=== PATIENT | female | born 1980 | race Asian ===

== ENCOUNTER 2016-11-21 20:32 | Emergency (ER) | payer OTHER ==
[~2016-11-21] VITALS: Ht 152.4 cm; Wt 78.5 kg
[2016-11-21 20:45] VITALS: TEMP 98.8
[2016-11-21] MEDS ORDERED: NAPROSYN250 MG OR (22:22)
[2016-11-21 22:28] VITALS: BP 110/75
== END 2016-11-21 22:28 | disposition home or self-care (01) ==
LOC: ED 20:32
DX: R07.89 Other chest pain (principal)
CPT/HCPCS: 93005; 99283

== ENCOUNTER 2017-10-16 01:00 | Outpatient (CLI) | payer OTHER ==
[~2017-10-16 01:00] MED LIST: NAPROSYN250 MG OR
== END 2017-10-16 01:05 | disposition short-term general hospital (02) ==
LOC: AMB 01:00
DX: R07.89 Other chest pain (principal)
CPT/HCPCS: A0425; A0427

== ENCOUNTER 2017-10-16 01:08 | Emergency (ER) | payer OTHER ==
[~2017-10-16] VITALS: Ht 165.1 cm; Wt 86.2 kg
[2017-10-16 01:29] LABS: PLATELET COUNT 212 K/uL (152-353)
[2017-10-16 01:42] LABS: POTASSIUM 3.4 mmol/L (3.6-5.2); SODIUM 135 mmol/L (136-145)
[2017-10-16 03:00] VITALS: BP 123/68; TEMP 98.3
== END 2017-10-16 03:04 | disposition home or self-care (01) ==
LOC: ED 01:08
DX: R07.89 Other chest pain (principal); N30.80 Other cystitis without hematuria; R31.9 Hematuria, unspecified
CPT/HCPCS: 80053; 80307; 81000; 82550; 84484; 85027; 85044; 85610; 85730; 93005; 96374; 96375; 99284; J2270; J2405

== ENCOUNTER 2017-11-15 15:39 | Emergency (ER) | payer OTHER ==
[~2017-11-15] VITALS: Ht 152.4 cm; Wt 77.1 kg
[2017-11-15 16:02] VITALS: BP 125/84; TEMP 98.6
== END 2017-11-15 16:15 | disposition home or self-care (01) ==
LOC: ED 15:39
DX: R50.9 Fever, unspecified (principal); R05 Cough; J02.9 Acute pharyngitis, unspecified
CPT/HCPCS: 99282

== ENCOUNTER 2018-05-11 23:46 | Emergency (ER) | payer OTHER ==
[~2018-05-11] VITALS: Ht 152.4 cm; Wt 79.8 kg
[2018-05-12 01:54] VITALS: BP 128/78; TEMP 98
== END 2018-05-12 01:57 | disposition home or self-care (01) ==
LOC: ED 23:46
DX: R10.84 Generalized abdominal pain (principal); K21.9 Gastro-esophageal reflux disease without esophagitis
CPT/HCPCS: 81000; 96372; 99282; J1885

== ENCOUNTER 2019-02-11 10:33 | Emergency (ER) | payer OTHER ==
[~2019-02-11] VITALS: Ht 152.4 cm; Wt 78.5 kg
[2019-02-11 11:25] LABS: PLATELET COUNT 216 K/uL (152-353)
[2019-02-11 11:31] LABS: POTASSIUM 3.9 mmol/L (3.6-5.2); SODIUM 137 mmol/L (136-145)
[2019-02-11 13:40] VITALS: BP 105/66; TEMP 97.9
== END 2019-02-11 13:40 | disposition home or self-care (01) ==
LOC: ED 10:33
PROVIDERS: Family Medicine
DX: R07.89 Other chest pain (principal); Z63.4 Disappearance and death of family member
CPT/HCPCS: 36415; 80053; 81000; 81025; 82550; 84484; 85027; 85379; 93005; 99284

== ENCOUNTER 2019-03-12 16:41 | Emergency (ER) | payer OTHER ==
[~2019-03-12] VITALS: Ht 152.4 cm; Wt 83.0 kg
[2019-03-12 17:25] LABS: POTASSIUM 3.7 mmol/L (3.6-5.2); SODIUM 138 mmol/L (136-145)
[2019-03-12 18:03] LABS: PLATELET COUNT 239 K/uL (152-353)
[2019-03-12 18:15] VITALS: BP 109/72; TEMP 97.8
== END 2019-03-12 18:15 | disposition home or self-care (01) ==
LOC: ED 16:41
PROVIDERS: Emergency Medicine
DX: R07.89 Other chest pain (principal); I45.81 Long QT syndrome
CPT/HCPCS: 36415; 80053; 82550; 82553; 84484; 85027; 93005; 99284

== ENCOUNTER 2019-10-21 18:43 | Emergency (ER) | payer OTHER ==
[~2019-10-21] VITALS: Ht 152.4 cm; Wt 79.4 kg
[2019-10-21 19:34] LABS: POTASSIUM 3.5 mmol/L (3.6-5.2); SODIUM 139 mmol/L (136-145)
[2019-10-21 19:55] LABS: PARTIAL THROMBOPLASTIN TIME 25.2 SECONDS (24.5-33.6)
[2019-10-21 19:57] LABS: PLATELET COUNT 197 K/uL (152-353)
[2019-10-21 21:10] VITALS: BP 119/74; TEMP 98.1
== END 2019-10-21 21:10 | disposition home or self-care (01) ==
LOC: ED 18:43
PROVIDERS: Family Medicine
DX: R07.89 Other chest pain (principal)
CPT/HCPCS: 36415; 80053; 82550; 84484; 85007; 85027; 85044; 85610; 85730; 93005; 99283

== ENCOUNTER 2021-09-30 08:45 | Emergency (ER) | payer OTHER ==
[~2021-09-30] VITALS: Ht 152.4 cm; Wt 87.5 kg
[2021-09-30 09:58] LABS: PLATELET COUNT 174 K/uL (152-353)
[2021-09-30 10:03] LABS: POTASSIUM 4.1 mmol/L (3.6-5.2)
[2021-09-30 10:11] LABS: PARTIAL THROMBOPLASTIN TIME 28.1 SECONDS (24.5-33.6)
[2021-09-30 11:03] VITALS: BP 110/78; TEMP 98.4
== END 2021-09-30 11:03 | disposition home or self-care (01) ==
LOC: ED 08:45
PROVIDERS: Hospitalist
DX: R07.89 Other chest pain (principal); R09.1 Pleurisy; R06.02 Shortness of breath
CPT/HCPCS: 80053; 82550; 83880; 84484; 85027; 85379; 85610; 85730; 93005; 96374; 96375; 99284; J1100; J1885; J2405

== ENCOUNTER 2022-06-21 10:10 | Emergency (ER) | payer OTHER ==
[~2022-06-21] VITALS: Ht 152.4 cm; Wt 90.7 kg
[2022-06-21 10:13] VITALS: TEMP 98.1
[2022-06-21 10:48] LABS: POTASSIUM 3.9 mmol/L (3.6-5.2)
[2022-06-21 11:16] LABS: PLATELET COUNT 209 K/uL (152-353)
[2022-06-21 12:31] VITALS: BP 104/72
== END 2022-06-21 15:24 | disposition home or self-care (01) ==
LOC: ED 10:10
PROVIDERS: Emergency Medicine
DX: R07.89 Other chest pain (principal); R79.89 Other specified abnormal findings of blood chemistry
CPT/HCPCS: 80053; 84484; 85027; 85379; 93005; 96372; 96374; 96375; 99283; J1650; J2270; J2405

== ENCOUNTER 2022-06-22 13:41 | Observation (INO) | payer OTHER ==
[~2022-06-22] VITALS: Ht 152.4 cm; Wt 88.7 kg
[2022-06-22 15:36] LABS: PLATELET COUNT 190 K/uL (152-353)
[2022-06-22 15:41] LABS: PARTIAL THROMBOPLASTIN TIME 25.6 SECONDS (24.5-33.6)
[2022-06-22 15:42] VITALS: BP 107/77; TEMP 99; Ht 152.4 cm; Wt 88.7 kg
[2022-06-22 20:00] VITALS: BP 108/60; TEMP 98.1
[2022-06-23] VITALS: BP 109/76; TEMP 98.9
[2022-06-23 04:00] VITALS: BP 109/76; TEMP 98.9
[2022-06-23 08:00] VITALS: BP 111/68; TEMP 98.4
== END 2022-06-23 12:17 | disposition home or self-care (01) ==
LOC: MED/SURG 13:41
PROVIDERS: ADMIT Internal Medicine; ATTEND Internal Medicine
DX: R07.89 Other chest pain (principal); R79.1 Abnormal coagulation profile; R06.09 Other forms of dyspnea; G40.802 Other epilepsy, not intractable, without status epilepticus; D57.80 Other sickle-cell disorders without crisis
CPT/HCPCS: 36415; 80053; 82550; 84484; 85027; 85044; 85379; 85610; 85730; 87635; 93005; 96372; 99220; G0378; G0379; J1650; Q9963; U0003